=== PATIENT | female | born 1990 | race Hispanic/Latino ===

== ENCOUNTER 2022-02-10 22:11 | Outpatient (CLI) | payer OTHER ==
[2022-02-10] MEDS ORDERED: LACTATED RINGERS 1,000 ML IV ONE (22:27)
[2022-02-10 22:57] VITALS: BP 104/57
[2022-02-10] MEDS ORDERED: TERBUTALINE 1 MG/1 ML INJ SUB-Q SCH (23:00)
[2022-02-10 23:45] LABS: Bilirubin,Urine Negative (Negative); Color,Urine Colorless (Yellow)
[2022-02-10 23:46] LABS: Blood,Urine Trace (Negative); Protein,Urine <15 mg/dL mg/dL (Negative); Urobilinogen,Urine 0.2 mg/dL (<2.0)
[2022-02-10 23:47] LABS: Bacteria,Urine 3+ /HPF (Negative)
[2022-02-10 23:49] LABS: WBC,Urine < 1.0 /HPF (0.0-6.0)
== END 2022-02-11 00:09 | disposition home or self-care (01) ==
LOC: TRG 22:11 → APU 22:13 → TRG 02-11 00:09
PROVIDERS: ATTEND Obstetrics & Gynecology
DX: O26.893 Other specified pregnancy related conditions, third trimester (principal); R25.2 Cramp and spasm; Z3A.33 33 weeks gestation of pregnancy
CPT/HCPCS: 81001

== ENCOUNTER 2022-03-13 19:12 | Outpatient (CLI) | payer OTHER ==
[2022-03-13] MEDS ORDERED: LACTATED RINGERS 1,000 ML IV ONE (20:16)
[2022-03-13 20:27] LABS: Color,Urine Straw (Yellow)
[2022-03-13 20:28] LABS: Bacteria,Urine 2+ /HPF (Negative); Mucus,Urine FEW /HPF
[2022-03-13] MEDS ORDERED: TERBUTALINE 1 MG/1 ML INJ SUB-Q ONE (22:11)
--- NOTE | 2022-03-13 23:01 | Event Note ---
Date: 03/13/22 Pt presented to triage with reports or contractions for several weeks, she is now 37+3 weeks. She reports hx of quick labors - states she arrived to hospital 9cms with last 2 labors. hx of 2 prev c/s after 4th degree laceration. No change in SVE after 2.5hrs in triage, rechecked by same examiner. Pt states she is "more that I have ever been" and her s/o states that he does not feel comfortable taking pt home. Pt states she is unsure if she feels she is in labor. Will allow patient to obs overnight, if active labor starts, will admit for repeat c/s.
[2022-03-13] MEDS ORDERED: ZOLPIDEM 5 MG TAB PO ONE (23:06)
[2022-03-13] MEDS ORDERED: LACTATED RINGERS 1,000 ML IV SCH (23:15)
[2022-03-14 00:34] LABS: Hematocrit 32.2 % (30.3-42.9); Hemoglobin 10.6 gm/dl (10.1-14.3); Mean Corpuscular HGB Conc 33 % (30-34); Mean Corpuscular Volume 84 fl (79-97); Platelet Count 153 K/mm3 (140-440); Red Blood Count 3.83 M/mm3 (3.65-5.03); Red Cell Distribution Width 14.4 % (13.2-15.2)
[2022-03-14 07:44] VITALS: BP 118/76
== END 2022-03-14 10:00 | disposition home or self-care (01) ==
LOC: TRG 19:12 → APU 19:14 → LD 03-14 00:15 → TRG 03-14 10:00
PROVIDERS: ATTEND Obstetrics & Gynecology
DX: O62.9 Abnormality of forces of labor, unspecified (principal); Z3A.37 37 weeks gestation of pregnancy
CPT/HCPCS: 36415; 81001; 85027; 86850; 86900; 86901; 96360; J7120

== ENCOUNTER 2022-03-24 07:35 | Inpatient (IN) | payer OTHER ==
[2022-03-24] MEDS ORDERED: FAMOTIDINE 20 MG/2 ML INJ IV ONE (08:09)
[2022-03-24] MEDS ORDERED: BICITRA ORAL LIQD 30ML PO ONE (08:09)
[2022-03-24] MEDS ORDERED: METOCLOPRAMIDE 10 MG/2 ML INJ IV ONE (08:09)
--- NOTE | 2022-03-24 08:39 | Anesthesia Consultation ---
Anesthesia Consult and Med Hx Date of service: 03/24/22 - Airway Anesthetic Teeth Evaluation: Good ROM Head & Neck: Adequate Mental/Hyoid Distance: Adequate Mallampati Class: Class II Intubation Access Assessment: Good - Pulmonary Exam CTA: Yes - Cardiac Exam Cardiac Exam: RRR - Pre-Operative Health Status ASA Pre-Surgery Classification: ASA2, Emergency Proposed Anesthetic Plan: Spinal - Pulmonary Hx Asthma: No COPD: No Hx Pneumonia: No - Cardiovascular System Hx Hypertension: No - Central Nervous System Hx Seizures: No Hx Psychiatric Problems: No - Endocrine Hx Renal Disease: No Hx End Stage Renal Disease: No Hx Hypothyroidism: No Hx Hyperthyroidism: No - Hematic Hx Anemia: No Hx Sickle Cell Disease: No - Other Systems Hx Alcohol Use: No
--- NOTE | 2022-03-24 08:41 | Anesthesia Day of Surgery ---
Anesthesia Day of Surgery - Day of Surgery Patient Examined: Yes Patient H&P Reviewed: Yes Patient is NPO: Yes
[2022-03-24] MEDS ORDERED: OXYTOCIN DRIP 30 UNITS/500 ML BAG IV SCH ×3 (09:00→13:00)
[2022-03-24] MEDS ORDERED: PROMETHAZINE 25 MG RECT SUPP PR PRN (09:00)
[2022-03-24 09:15] LABS: Basophils % (Auto) 0.4 % (0.0-1.8); Eosinophils % (Auto) 0.6 % (0.0-4.3); Hematocrit 34.5 % (30.3-42.9); Hemoglobin 11.6 gm/dl (10.1-14.3); Lymphocytes # (Auto) 1.3 K/mm3 (1.2-5.4); Mean Corpuscular HGB Conc 34 % (30-34); Mean Corpuscular Volume 82 fl (79-97); Monocytes # (Auto) 0.4 K/mm3 (0.0-0.8); Monocytes % (Auto) 6.4 % (0.0-7.3); Platelet Count 159 K/mm3 (140-440); Red Blood Count 4.22 M/mm3 (3.65-5.03); Red Cell Distribution Width 14.9 % (13.2-15.2)
[2022-03-24] MEDS ORDERED: SODIUM CHLORIDE 0.9% IRR 1,500 ML BOTTLE IR ONE (09:28)
[2022-03-24] MEDS ORDERED: WATER FOR IRRIG STERILE 1,500 ML BOTTLE IR ONE (09:28)
[2022-03-24] MEDS ORDERED: LACTATED RINGERS 1,000 ML IV SCH (10:00)
[2022-03-24] MEDS ORDERED: NALOXONE 0.4 MG/1 ML INJ IV PRN ×2 (10:00→13:00)
[2022-03-24] MEDS ORDERED: NalbUPHINE 10 MG/1 ML INJ IV PRN (10:00)
[2022-03-24] MEDS ORDERED: fentaNYL-BUPIV 2 MCG/ML-0.125% 200 MCG/100 ML BAG EPIDURAL SCH (10:00)
[2022-03-24] MEDS ORDERED: PROMETHAZINE 25 MG TAB PO PRN (10:00)
[2022-03-24] MEDS ORDERED: ACETAMINOPHEN 325 MG TAB PO PRN (10:00)
[2022-03-24] MEDS ORDERED: ePHEDrine SULFATE 50 MG/1 ML INJ IV PRN (10:00)
[2022-03-24] MEDS ORDERED: ONDANSETRON 4 MG/2 ML INJ IV PRN ×2 (10:00→13:00)
--- NOTE | 2022-03-24 10:32 | History and Physical Report ---
History of Present Illness Date of examination: 03/24/22 Date of admission: 03/24/22 09:09 History of present illness: Patient presented to labor and delivery with complaints of regular contractions and her initial examination revealed that she had a cervix was dilated to 5 cm. Patient care complicated by history of 2 previous section the patient is scheduled for soon repeat section with bilateral salpingectomy on tomorrow. Therefore patient underwent section today. EDC Confirmation: 03/31/2022 Past History : 6 Term Births: 1 Premature Births: 2 Living Children: 3 Para: 3 Prev : 2 Aborta: 2 Spont. Ab: 2 # 1 Delivery date: 2014 Weeks Gestation: 36 Delivery type: Anesthesia type: epidural Delivery location: [place] [facility] Sex: Male weight: 6-2 Comments: 4th degree laceration Pre E induced # 2 Delivery date: 2016 Weeks Gestation: 35.0 Delivery type: Anesthesia type: epidural Delivery location: [facility] Inf[facility] Sex: Male weight: 5-13 Comments: pre term labor # 3 Delivery date: 2018 Delivery type: SAB # 4 Delivery date: 2019 Weeks Gestation: 37 Delivery type: Anesthesia type: epidural Delivery location: [facility] 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 of genital herpes: no Varicella/Chicken Pox Status: Previous Disease Genetic History Congenital Heart Defect: Mom: no Dad: no Delmer Disease: Mom: no Dad: no Thalassemia Mom: no Dad: no Neural Tube Defect Mom: no Dad: no Down's Syndrome Mom: no Dad: no Alexsander-Sachs Mom: no Dad: no Sickle Cell Disease/Trait Mom: no Dad: no Hemophilia Mom: no Dad: no Muscular Dystrophy Mom: no Dad: no Cystic Fibrosis Mom: no Dad: no Harlan Chorea Mom: no Dad: no Mental Retardation Mom: no Dad: no Fragile X Mom: no Dad: no Other Genetic/Chromosomal Disorder Mom: no Dad: no Child w/other defect Mom: no Dad: no Enviromental Exposures Xray Exposure: no Medication, drug, or alcohol use since LMP: no Chemical/Other Exposure: no Exposure to Cat Liter: no Hx of Parvovirus (Fifth Disease): no Occupational Exposure to Children: none Active Medications: Diclegis 10-10 mg tablet,delayed release (DR/EC) (doxylamine-pyridoxine (vit b6)) 2 tablet by mouth once a day promethazine 12.5 mg tablet (promethazine) 1 tablet by mouth every six hours Current Allergies: * PENICILLIN (Critical) Past History Past Medical History: no pertinent history Past Surgical History: section 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 (SEE HPI) Family/Genetic History: other (SEE HPI) Social history: full code, other (SEE HPI) - Obstetrical History Expected Date of Delivery: 03/31/22 Actual Gestation: 39 Week(s) 0 Day(s) : 6 Para: 3 Hx # Term Pregnancies: 1 Number of Pregnancies: 2 Spontaneous Abortions: 2 Induced : 0 Number of Living Children: 3 Medications and Allergies Allergies Allergy/AdvReac Type Severity Reaction Status Date / Time Penicillins Allergy Hives Verified 03/17/22 12:35 Home Medications Medication Instructions Recorded Confirmed Last Taken Type Ferrous Sulfate [Feosol 325 MG tab] 325 mg PO BID #60 tablet 03/24/22 Unknown Rx Ibuprofen [Motrin] 800 mg PO TID PRN #30 tablet 03/24/22 Unknown Rx Lidocain2.5%/Prilocai2.5% [Emla] 5 gm TP ONCE #1 tube 03/24/22 Unknown Rx oxyCODONE /ACETAMINOPHEN [Percocet 1 tab PO Q6HR PRN #20 tablet 03/24/22 Unknown Rx 5/325 mg] Active Meds: Active Medications Acetaminophen (Acetaminophen 325 Mg Tab) 650 mg PO Q4H PRN PRN Reason: Pain, Mild (1-3) Ephedrine Sulfate (Ephedrine Sulfate 50 Mg/1 Ml Inj) 10 mg IV Q2M PRN PRN Reason: Hypotension Lactated Ringer's (Lactated Ringers) 1,000 mls @ 2,250 mls/hr IV PREOP VESNA Stop: 03/25/22 10:27 Oxytocin/Sodium Chloride (Pitocin/Ns 30 Unit/500ml) 30 units in 500 mls @ 0 mls/hr IV TITR VESNA; Protocol Clindamycin HCl (Cleocin 900 Mg/50 Ml) 900 mg in 50 mls @ 100 mls/hr IV PREOP NR; Protocol Stop: 03/24/22 23:59 Fentanyl/Bupivacaine/Sodium Chlor (Fentanyl-Bupiv 2 Mcg/Ml-0.125%) 200 mcg in 100 mls @ 8 mls/hr EPIDURAL TITRATE VESNA; Protocol Oxytocin/Sodium Chloride (Pitocin/Ns 30 Unit/500ml) 30 units in 500 mls @ 40 mls/hr IV TITR VESNA Nalbuphine HCl (Nalbuphine 10 Mg/1 Ml Inj) 10 mg IV Q2H PRN PRN Reason: Pain, Moderate (4-6) Naloxone HCl (Naloxone 0.4 Mg/1 Ml Inj) 0.2 mg IV Q2MIN PRN PRN Reason: Res Rate </= 8 or 02 SAT < 92% Ondansetron HCl (Ondansetron 4 Mg/2 Ml Inj) 4 mg IV Q8H PRN PRN Reason: Nausea And Vomiting Promethazine HCl (Promethazine 25 Mg Tab) 25 mg PO Q6H PRN PRN Reason: Nausea And Vomiting Promethazine HCl (Promethazine 25 Mg Rect Supp) 25 mg MA Q6H PRN PRN Reason: Nausea And Vomiting Sodium Chloride (Sodium Chloride 0.9% 10 Ml Flush Syringe) 10 ml IV PRN PRN PRN Reason: flush - Vital Signs Vital signs: Vital Signs Pulse Pulse Ox 92 H 92 03/24/22 07:47 03/24/22 07:47 Temp Pulse Resp BP Pulse Ox 97.7 F 93 H 18 125/81 94 03/24/22 07:50 03/24/22 08:07 03/24/22 07:50 03/24/22 07:48 03/24/22 08:07 - Physical Exam Breasts: Positive: deferred Cardiovascular: Regular rate Lungs: Positive: Normal air movement Abdomen: Positive: normal appearance Uterus: Positive: enlarged Extremities: Positive: edema - Obstetrical FHR: category 1 Uterine Contraction Monitor Mode: External Results Result Diagrams: 03/24/22 13:57 Abnormal lab results 03/24/22 Range/Units 08:57 MCH 27 L (28-32) pg Seg Neutrophils % 72.6 H (40.0-70.0) % All other labs normal. Assessment and Plan - Patient Problems (1) Active labor at term Current Visit: Yes Status: Acute (2) Previous delivery affecting , antepartum Current Visit: Yes Status: Acute Plan to address problem: Discuss the risks of the surgery including infection, bleeding possibly heavy enough to require a blood transfusion, possible damage to bowel, bladder or ureter. Her questions were answered. Patient understands and desires to proceed The patient was instructed/informed the following: Patient desires sterilization. Patient declined temporary contraceptives. Discuss the permanency of sterilization. High risk of regret and 0.5 to 1% risk of failure. Discussed possible ovarian cancer prevention benefit of salpingectomy with its increased risks of blood loss vs partial salpingectomy. Questions answered Patient understands and desires to proceed with salpingectomy Patient desires to have at time of section. (3) Encounter for sterilization Current Visit: Yes Status: Acute Plan to address problem: Patient desires sterilization. Patient declined temporary contraceptives. Discuss the permanency of sterilization. High risk of regret and 0.5 to 1% risk of failure. Discussed possible ovarian cancer prevention benefit of salpingectomy with its increased risks of blood loss vs partial salpingectomy. Questions answered Patient understands and desires to proceed with salpingectomy Patient desires to have at time of section.
--- NOTE | 2022-03-24 10:33 | Operative Report ---
Operative Report Operative Report: Date of procedure: March 24, 2022 Pre-operative diagnosis: Intrauterine at 39 weeks with previous sections x2 and active labor and desires permanent sterilization Post-operative diagnosis: Same Procedure name(s): Repeat low-transverse section with bilateral salpingectomy Surgeon: Joe Maria MD Lean Manager: Violet Martin CST Anesthesia: Spinal EBL: Quantitative blood loss 862 cc Complications: None Findings: Patient with some anterior scar and of the bladder to the uterus with normal uterus tubes and ovaries. Male infant weight 9 pounds 1 ounce Apgars 9 at 1 minute and 9 at 5-minute. Specimen(s): Right and left fallopian tubes Procedure: The patient was brought to the operating room. A spinal was placed without any complications. She was then placed in left lateral tilt. Prepped and draped in the usual sterile manner. After testing for adequate anesthesia level, a Pfannenstiel incision was made through her previous scar. This incision was taken down to the fascia. The fascia was then nicked in the midline. This incision was extended out laterally with Gaffney scissors. The fascia was then sharply and bluntly from the underlying rectus muscles. The rectus muscles were bluntly and sharply . The peritoneum was then entered with the network systems operator's fingers. This incision was spread vertically with care not to damage the bladder below. The Sriram self-retaining tractor was then placed without any difficulty. The bladder flap was then formed sharply and bluntly with Metzenbaum scissors. A transverse incision was made in lower uterine segment. This incision was extended laterally with the operators fingers. The amniotic sac was then entered bluntly with the network systems operator's fingers. The was delivered from the vertex position. Bulb suction on the mother's abdomen. Cord was double clamped and cut. The was then passed to the nursery personnel who were in attendance. The above scores were given by the nursery personnel. The placenta was then bluntly removed. The uterus was then externalized and wiped clean the remaining products. The uterine incision was closed in layers. The first incision was closed in a locking manner using 0 Vicryl. This was followed by imbricating stitch also with 0 Vicryl. Attention was then switched to the patient's fallopian tubes. Each fallopian tube was identified by its fimbriated end. Starting on the patient's right side. A portion of each tube was grabbed with the [place] clamp approximately 2-3 cm from the cornua. A second Ivory grasp the distal in the fallopian tube the tube was raised the medially and was transferred dissected with the Bovie. The mesosalpinx was cauterized and cut immediately under the fallopian tube until the distal end was reached and the tube was detached. The remaining mesosalpinx and ovary were inspected and found to be hemostatic. Attention was then switched to the patient's left fallopian tube where the same seizure was performed with good hemostasis. Attention was then switched back to the uterine closure. This closure was hemostatic after additional [id number] sutures. The bladder flap was copiously irrigated and found to be hemostatic. The pelvis was copiously irrigated and found to be hemostatic. The uterus was then placed back to the patient's abdomen. Surgicel was placed along the uterine incision the retractors were removed. The rectus muscles were inspected and found to be hemostatic. The fascia was then closed in a running manner using 0 Vicryl. This incision was hemostatic irrigation Bovie. The skin was reapproximated with 4-0 Vicryl subcuticularly. The patient tolerated procedure well. Her urine was clear. The infant was admitted to the well baby nursery. The patient was accompanied to recovery room in good condition. Instrument count correct x3.
--- NOTE | 2022-03-24 12:21 | Progress Note ---
Spinal Anesthesia Block - Spinal Anesthesia Block Start Time: 09:05 Stop Time: 09:12 Performed by:: WINTER YOUNG Procedure: Spinal anesthesia block is being performed for [repeat c/s]. H&P, labs have been reviewed. Patient's questions and concerns have been answered. Informed consent has been performed. Timeout has was performed. Patient in sitting position on side of bed. Sterile prep and drape was performed. 3 mL 1% lidocai ne skin wheal at L [3]-L [4]. Needle introducer advanced. 24-gauge spinal needle advanced, [+] CSF [-] blood. [] Spinal dose was given. All needles removed. Patient tolerated procedure well.
--- NOTE | 2022-03-24 12:22 | Progress Note ---
Regional Anesthesia Block - Regional Anesthesia Block Start Time: 11:15 Stop Time: :25 Performed By:: WINTER YOUNG Procedure: Patient consented for TAP block for post surgical pain management. Patient identified, monitors placed, and time out performed. Mid axillary TAP identified bilaterally via ultrasound. Skin prepped bilaterally with [chlorhexidine] and [20g stimuplex] needle advanced to the TAP. 30ml [Marcaine 0.25% with 25mcg Precedex and Decadron 5mg] injected under ultrasound guidance on the [left] side. 30ml [Marcaine 0.25% with 25mcg Precedex and Decadron 5mg] injected under ultrasound guidance on the [right] side. Negative aspiration every 5mL, Patient tolerated the procedure well. No apparent complications seen.
[2022-03-24] MEDS ORDERED: LANOLIN/ZINC/DIMETHICONE (LANSINOH) 7 GM TP PRN (13:00)
[2022-03-24] MEDS ORDERED: WITCH HAZEL/ GLYCERIN PAD TP PRN (13:00)
[2022-03-24] MEDS: MORPHINE 4 MG/1 ML INJ IV PRN ×3 (13:30→22:38)
[2022-03-24] MEDS ORDERED: IBUPROFEN 600 MG TAB PO PRN (13:30)
[2022-03-24] MEDS ORDERED: SIMETHICONE 80 MG CHEW TAB PO PRN (13:30)
[2022-03-24 14:48] LABS: Hematocrit 25.9 % (30.3-42.9); Hemoglobin 8.4 gm/dl (10.1-14.3)
[2022-03-24] MEDS: KETOROLAC 30 MG/1 ML INJ IV PRN (16:09)
[2022-03-24] MEDS: CLINDAMYCIN 600 MG/50 mL 600 MG/50 ML BAG IV SCH (18:19)
[2022-03-24 20:22] LABS: Hemoglobin 9.2 gm/dl (10.1-14.3)
[2022-03-24] MEDS: D5W/LACTATED RINGERS 1,000 ML IV SCH (20:55)
[2022-03-24] MEDS ORDERED: MAGNESIUM HYDROXIDE (MOM) ORAL LIQD UDC PO PRN (22:00)
[2022-03-24 22:54] LABS: Hematocrit 27.8 % (30.3-42.9); Hemoglobin 8.8 gm/dl (10.1-14.3)
[2022-03-25] MEDS: KETOROLAC 30 MG/1 ML INJ IV PRN ×3 (01:47→20:43)
[2022-03-25] MEDS: CLINDAMYCIN 600 MG/50 mL 600 MG/50 ML BAG IV SCH (01:55)
[2022-03-25] MEDS: D5W/LACTATED RINGERS 1,000 ML IV SCH (04:33)
[2022-03-25] MEDS: MORPHINE 4 MG/1 ML INJ IV PRN (04:34)
[2022-03-25] MEDS: oxyCODONE /ACETAMINOPHEN 5-325MG TAB PO PRN ×2 (08:55→15:36)
[2022-03-25] MEDS: PRENATAL VIT27-FE FUMARATE-FOLIC ACID VIT TAB PO SCH (10:52)
[2022-03-25] MEDS: FERROUS SULFATE 325 MG TAB PO SCH (10:52)
[2022-03-25] MEDS ORDERED: TETANUS,DIPH,PERTUSS(ACELL) VACCINE 0.5 ML SYRINGE IM ONE (11:00)
[2022-03-25] MEDS ORDERED: MEASLES, MUMPS & RUBELLA 12,500 UNIT/0.5 ML VACCINE SUB-Q ONE (11:00)
--- NOTE | 2022-03-25 14:53 | Post Anesthesia Evaluation ---
- Post Anesthesia Evaluation Patient Participated: Yes Airway Patent: Yes Stable Respiratory Function: Yes Nausea/Vomiting: No Temp > 96.8F: Yes Pain Manageable: Yes Adequeate Hydration: Yes Anesthesia Complications: No Block Receding Appropriately: Yes Patient on Ventilator: No
--- NOTE | 2022-03-25 20:54 | Progress Note ---
Assessment and Plan A: 31 y.o. s/p rpt . POD #1 - Patient Problems (1) delivery delivered Current Visit: Yes Status: Acute Plan to address problem: Continue with care. Advance diet as tolerated. Encourage IS use. Encourage ambulation. Pain medication adjusted. Patient worried about her blood pressures - Blood pressures have been WNL. - Will continue to monitor. Anticipate discharge home on 03/26. Subjective - Subjective Date of service: 03/25/22 Principal diagnosis: s/p rpt Interval history: Pt doing well. She states that her pain is "somewhat controlled." We discussed changing her pain medication regime. She expressed understanding and agrees. Pt has a history of Pre-eclampsia and is worried about her blood pressures. She denies LUCAS, blurred vision, spots before her eyes, chest pain, shortness of breath, and upper abdominal pain. BC: Vasectomy. Pt would like infant circu mcised. Patient reports: appetite normal, voiding normally, ambulating normally, other (Pt with some pain. States that she needs pain medication as prescribed. ) [place]: doing well Objective - Vital Signs Latest vital signs: Vital Signs Temp Pulse Resp BP BP Pulse Ox Pulse Ox 03/25/22 20:43 18 03/25/22 16:50 97.7 F 70 18 139/83 100 03/25/22 08:34 97.6 F 85 18 132/80 100 03/25/22 08:00 100 03/25/22 05:00 98.4 F 86 18 116/73 03/25/22 00:30 98.4 F 88 16 121/73 03/24/22 23:11 98 Intake and Output 03/25/22 03/25/22 03/25/22 06:59 14:59 22:59 Intake Total 1204.167 Output Total 2600 900 Balance -1395.833 -900 Intake: IV 1004.167 CLEOCIN 600 MG/50 mL 600 50 mg In 50 ml @ 100 mls/hr IV Q8H VESNA Rx#:[id number] D5lr 1,000 ml @ 125 mls/ 954.167 hr IV DIRECT VESNA Rx#: [id number] Intake, Free Water 200 Output: Urine 2600 900 Indwelling Catheter 2100 Void 500 900 Other: Total, Output Amount 500 900 # Voids Void 1 1 2 - Exam Narrative Exam: Blood pressure ranges have been 99-139/59-88. Cardiovascular: Present: Regular rate Lungs: Present: Normal air movement Abdomen: Present: normal appearance, soft Vulva: both: normal Uterus: Present: normal Extremities: Present: normal Incision: Present: normal, dry, intact, other (Open to air. No s/sx of infection and no drainage noted. ) - Labs Labs: Abnormal lab results 03/24/22 Range/Units 22:18 Hgb 8.8 L (10.1-14.3) gm/dl Hct 27.8 L (30.3-42.9) %
[2022-03-26] MEDS: oxyCODONE /ACETAMINOPHEN 5-325MG TAB PO PRN ×2 (01:11→08:15)
--- NOTE | 2022-03-26 08:32 | Discharge Summary ---
Providers - Providers Date of Admission: 03/24/22 09:09 Date of discharge: 03/26/22 Attending physician: AMBER SILVA Primary care physician: AMBER SILVA Hospitalization Condition: Good Pertinent studies: post op H&H 8.8/27.8 Procedures: POD #2, pt stable, denies LUCAS, vision changes, epigastric pain. Incision clean and dry, well-approximated with surgical glue. VSSAF. Bleeding scant. Pt desires discharge today. Baby doing well, . Hospital course: unremarkable Disposition: 01 HOME / SELF CARE / HOMELESS Final Discharge Diagnosis (Prints w/discharge instructions): s/p repeat section and BTL Time spent for discharge: 20 - Discharge Diagnoses (1) delivery delivered Status: Acute (2) Encounter for sterilization Status: Acute Core Measure Documentation - Palliative Care Palliative Care/ Comfort Measures: Not Applicable - Core Measures Any of the following diagnoses?: none Exam - Constitutional Vitals: Temp Pulse Resp BP Pulse Ox 97.7 F 68 18 115/67 100 03/26/22 04:40 03/26/22 04:40 03/26/22 04:40 03/26/22 04:40 03/26/22 04:40 General appearance: Present: no acute distress, well-nourished - EENT Eyes: Present: EOM intact ENT: hearing intact, clear oral mucosa - Neck Neck: Present: supple, normal ROM - Respiratory Respiratory effort: normal - Cardiovascular Rhythm: regular - Extremities Extremities: No edema, Full ROM Peripheral Pulses: within normal limits - Abdominal General gastrointestinal: Present: soft, non-tender, normal bowel sounds Female genitourinary: Present: normal - Integumentary Integumentary: Present: clear, warm, dry - Musculoskeletal Musculoskeletal: strength equal bilaterally - Psychiatric Psychiatric: appropriate mood/affect - Neurologic Neurologic: CNII-XII intact Plan Activity: advance as tolerated Diet: regular Wound: open to air, keep clean and dry, per your surgeon's advice Follow up with: AMBER SILVA MD [Primary Care Provider] - 7 Days (Congratulations! Please call [facility] at [phone] to schedule your appointment and your son's circumcision in one week. Bring emla cream to office and wait for instructions, please call with any questions!) Prescriptions: Lidocain2.5%/Prilocai2.5% [Emla] 5 gm TP ONCE #1 tube Ferrous Sulfate [Feosol 325 MG tab] 325 mg PO BID #60 tablet Ibuprofen [Motrin] 800 mg PO TID PRN #30 tablet PRN Reason: Pain oxyCODONE /ACETAMINOPHEN [Percocet 5/325 mg] 1 tab PO Q6HR PRN #20 tablet PRN Reason: Pain
[2022-03-26 08:47] VITALS: BP 122/83
[2022-03-26] MEDS: PRENATAL VIT27-FE FUMARATE-FOLIC ACID VIT TAB PO SCH (10:05)
[2022-03-26] MEDS: FERROUS SULFATE 325 MG TAB PO SCH (10:05)
== END 2022-03-26 10:57 | disposition home or self-care (01) | DRG 784 ==
LOC: TRG 07:35 → APU 07:38 → TRG 09:13 → APU 09:33 → OB 12:22
PROVIDERS: ADMIT Obstetrics & Gynecology; ATTEND Obstetrics & Gynecology
PROC: 10D00Z1 Extraction of Products of Conception, Low, Open Approach (ICD-10-PCS; principal; 2022-03-24)
PROC: 0UB70ZZ Excision of Bilateral Fallopian Tubes, Open Approach (ICD-10-PCS; 2022-03-24)
PROC: 3E0T3BZ Introduction of Anesthetic Agent into Peripheral Nerves and Plexi, Percutaneous Approach (ICD-10-PCS; 2022-03-24)
PROC: 3E0234Z Introduction of Serum, Toxoid and Vaccine into Muscle, Percutaneous Approach (ICD-10-PCS; 2022-03-25)
DX: O34.211 Maternal care for low transverse scar from previous cesarean delivery (principal); R71.0 Precipitous drop in hematocrit; Z20.822 Contact with and (suspected) exposure to COVID-19; Z37.0 Single live birth; Z23 Encounter for immunization; Z88.0 Allergy status to penicillin; Z3A.39 39 weeks gestation of pregnancy; Z30.2 Encounter for sterilization
CPT/HCPCS: 36415; 85014; 85018; 85025; 86850; 86900; 86901; G0378; J3490; J7060; J7502; J1885; J2270; J2765; J7120; J7121; U0003

== ENCOUNTER 2022-04-02 17:50 | Emergency (ER) | payer OTHER ==
--- NOTE | 2022-04-02 23:03 | Emergency Department Report ---
ED General Adult HPI - General Chief complaint: High BP Stated complaint: HIGH BLOOD PRESSURE Time Seen by Provider: 04/02/22 22:52 Source: patient Mode of arrival: Ambulatory Limitations: No Limitations - History of Present Illness Initial comments: THIS IS A PLEASANT 31 YEAR OLD FEMALE WHO STATES SHE HAS HISTORY OF PREECLAMPSIA AFTER HER 1ST AND 3RD DELIVERY CAME IN TODAY WITH CONCERN OF ELEVATED BLOOD PRESSURE. THIS IS PATIENT'S 4TH AND 3RD ; LAST TUESDAY (NOT THIS PAST) WITH DR. SILVA HERE AT [facility]. PATIENT STATES HER BLOOD PRESSURE HAS BEEN ELEVATED SINCE PAST TUESDAY AND WAS STARTED ON LABETOLOL 200MG BID AND LAST DOSE WAS TODAY AT 7:30PM. PATIENT STATES SHE HAD URINALYSIS DONE AND WAS NEGATIVE FOR PROTEIN. PATIENT STATES DR. TRUDY MOSQUEDA INSTRUCTED TO COME TO THE ER DUE TO CONTINUE ELEVATED BLOOD PRESSURE DESPITE STARTED ON LABETOLOL. PATIENT STATES WHILE IN THE WAITING AREA SINCE 5PM, SHE STARTED FEELING LIGHTH EADED. STATES HAS MILD CHEST PRESSURE/TIGHTNESS LIKE SENSATION SINCE 4PM WHILE AT HOME THAT'S LOCALIZED. AT THE TIME OF MY EVALUATION PATIENT DENIES FEVER, CHILL, NIGHT SWEATS, DIZZINESS, HEADACHE, EAR PAIN, SORE THROAT, PALPITATION, DYSPNEA, COUGH, ABDOMINAL DISCOMFORT, N/V/D/C, DYSURIA, MYALGIA, ARTHRALGIA, NEW RASH/LESION, AND HEAT OR COLD INTOLERANCE. - Related Data Previous Rx's Medication Instructions Recorded Last Taken Type Ferrous Sulfate [Feosol 325 MG tab] 325 mg PO BID #60 tablet 03/24/22 Unknown Rx Ibuprofen [Motrin] 800 mg PO TID PRN #30 tablet 03/24/22 Unknown Rx Lidocain2.5%/Prilocai2.5% [Emla] 5 gm TP ONCE #1 tube 03/24/22 Unknown Rx oxyCODONE /ACETAMINOPHEN [Percocet 1 tab PO Q6HR PRN #20 tablet 03/24/22 Unknown Rx 5/325 mg] Allergies Allergy/AdvReac Type Severity Reaction Status Date / Time Penicillins Allergy Hives Verified 03/17/22 12:35 ED Review of Systems ROS: Stated complaint: HIGH BLOOD PRESSURE Other details as noted in HPI Comment: All other systems reviewed and negative ED Past Medical Hx - Past Medical History Hx Hypertension: Yes ( HTN) Hx Congestive Heart Failure: No Hx Diabetes: No Hx Deep Vein Thrombosis: No Hx Renal Disease: No Hx Sickle Cell Disease: No Hx Seizures: No Hx Asthma: No Hx COPD: No Hx HIV: No Additional medical history: DELIVERY 03/24/2022. POST HYPERTENSION - Surgical History Past Surgical History?: No - Social History Smoking Status: Never Smoker - Medications Home Medications: Home Medications Medication Instructions Recorded Confirmed Last Taken Type Ferrous Sulfate [Feosol 325 MG tab] 325 mg PO BID #60 tablet 03/24/22 Unknown Rx Ibuprofen [Motrin] 800 mg PO TID PRN #30 tablet 03/24/22 Unknown Rx Lidocain2.5%/Prilocai2.5% [Emla] 5 gm TP ONCE #1 tube 03/24/22 Unknown Rx oxyCODONE /ACETAMINOPHEN [Percocet 1 tab PO Q6HR PRN #20 tablet 03/24/22 Unknown Rx 5/325 mg] ED Physical Exam - General Limitations: No Limitations General appearance: alert, in no apparent distress - Head Head exam: Present: atraumatic, normocephalic, normal inspection - Eye Eye exam: Present: normal appearance, PERRL, EOMI Pupils: Present: normal accommodation - ENT ENT exam: Present: mucous membranes moist - Neck Neck exam: Present: normal inspection, full ROM - Extremities Exam Extremities exam: Present: normal inspection, full ROM, other (I DON'T APPRECIATE ANY EDEMA VISUALLY.). Absent: pedal edema - Back Exam Back exam: Present: full ROM - Neurological Exam Neurological exam: Present: alert, oriented X3, CN II-XII intact, normal gait - Psychiatric Psychiatric exam: Present: normal affect, normal mood - Skin Skin exam: Present: normal color ED Course Vital Signs 04/02/22 04/03/22 17:51 01:19 Temperature 100.0 F H 98.5 F Pulse Rate 63 57 L Respiratory 18 16 Rate Blood Pressure 165/86 158/68 [Left] O2 Sat by Pulse 100 98 Oximetry - Reevaluation(s) Reevaluation #1: 04/02/22 23:55 STILL PENDING URINALYSIS TO SEE IF THERE ARE ANY PROTEIN AND ALSO OTHER LABS SUCH CREATININE, PLATELETS, LDH. 04/02/22 23:57 04/03/22 00:41 All the labs are back except LDH and UA; calling labs to see if they have the urine. Creatinine and platelet normal. 04/03/22 01:38 UA WITH NO PROTEIN; THEREFORE DOUBT PRE-ECLAMPSIA. STILL PENDING LDH. 04/03/22 02:24 I HAVE CALLED THE CHEMISTRY AND THEY ARE STILL RUNNING THE LDH. 04/03/22 02:51 LDH ELEVATED BUT THERE ARE NO SIGNS OF HELLPS (CBC W/O THROMBOCYTOPENIA AND NO ELEVATED AST/ALT). PATIENT NOT IN PRE-ECLAMPSIA ED Medical Decision Making - Lab Data Result diagrams: 04/02/22 23:24 04/02/22 23:24 Critical care attestation.: If time is entered above; I have spent that time in minutes in the direct care of this critically ill patient, excluding procedure time. ED Disposition Clinical Impression: Elevated blood pressure reading Disposition: 01 HOME / SELF CARE / HOMELESS Is pt being admited?: No Does the pt Need Aspirin: No Condition: Stable Instructions: Hypertension, Adult, [id number] Additional Instructions: YOUR WORK UP IN THE EMERGENCY ROOM DID NOT REVEAL THAT YOU ARE IN PRE-ECLAMPSIA; CONTINUE TO TAKE YOUR BLOOD PRESSURE MEDICATION AND MAKE A FOLLOW UP APPOINTMENT WITH YOUR PRIMARY CARE PROVIDER AND OBGYN PHYSICIAN TO BE SEEN WITHIN 3 DAYS FOR FURTHER OUTPATIENT EVALUATION AND MANAGEMENT OF YOUR BLOOD PRESSURE. Referrals: WALLY MIRANDA MD [Primary Care Provider] - 3-5 Days Forms: Work/School Release Form(ED) Time of Disposition: 02:56
[2022-04-03 00:13] LABS: Hematocrit 31.4 % (30.3-42.9); Mean Corpuscular HGB Conc 32 % (30-34); Mean Corpuscular Volume 84 fl (79-97); Platelet Count 210 K/mm3 (140-440); Red Blood Count 3.72 M/mm3 (3.65-5.03); Red Cell Distribution Width 16.5 % (13.2-15.2)
[2022-04-03 00:21] LABS: INR 0.91 (0.87-1.13); Partial Thromboplastin Time 28.1 Sec. (24.2-36.6)
[2022-04-03 00:23] LABS: Alanine Aminotransferase 20 units/L (7-56); Albumin 4.2 g/dL (3.9-5); BUN/Creatinine Ratio 13; Blood Urea Nitrogen 10 mg/dL (7-17); Calcium 9.1 mg/dL (8.4-10.2); Hemolysis Index 2
[2022-04-03 00:30] LABS: Creatine Kinase MB 1.7 ng/mL (0.0-4.0)
--- NOTE | 2022-04-03 00:30 | XRay Report ---
CHEST 1 VIEW INDICATION / CLINICAL INFORMATION: CHEST PAIN POST PARDUM X9DAYS;. COMPARISON: None available. FINDINGS: SUPPORT DEVICES: None. HEART / MEDIASTINUM: No significant abnormality. LUNGS / PLEURA: No significant pulmonary or pleural abnormality. No pneumothorax. ADDITIONAL FINDINGS: No significant additional findings. IMPRESSION: 1. No acute findings. Signer Name: Sobeida Diaz MD Signed: 04/03/2022 12:26 AM Workstation Name: [id number]
[2022-04-03 00:55] LABS: Color,Urine Colorless (Yellow)
[2022-04-03 01:20] VITALS: BP 158/68
--- NOTE | 2022-04-07 13:55 | Electrocardiograph Report ---
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
== END 2022-04-03 03:12 | disposition home or self-care (01) ==
LOC: ED 17:50
DX: R03.0 Elevated blood-pressure reading, without diagnosis of hypertension (principal); Z88.0 Allergy status to penicillin
CPT/HCPCS: 36415; 71045; 80053; 81001; 82550; 82553; 83615; 83735; 84484; 85027; 85610; 85730; 93005; 99283; 99284

== ENCOUNTER 2022-04-08 10:44 | Inpatient (IN) | payer OTHER ==
[2022-04-08] MEDS ORDERED: HYDROcodone/ACETAMINOPHEN 5-325 MG TAB PO PRN (10:55)
[2022-04-08] MEDS ORDERED: ACETAMINOPHEN 325 MG TAB PO PRN (10:55)
[2022-04-08] MEDS ORDERED: IBUPROFEN 800 MG TAB PO PRN (10:55)
[2022-04-08] MEDS ORDERED: MORPHINE 4 MG/1 ML INJ IV PRN (10:55)
--- NOTE | 2022-04-08 10:55 | History and Physical Report ---
History of Present Illness Date of examination: 04/08/22 Date of admission: 04/08/2022 Chief complaint: elevated blood pressures History of present illness: Vital Signs: Patient Profile: 31 Years Old Female Height: 62 inches BP sittin / 100 (left arm) Impression & Recommendations: Problem # 1: Elevated blood pressure (ICD-796.2) (DFX98-A73.0) Her updated medication list for this problem includes: Labetalol 200 Mg Tablet (Labetalol) ..... 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 Orders: Sick OB Visit Level III (CPT-84000) Visit Type: Acute Visit CC: POD #14 blood pressure check. Pt blood pressures elevated despite taking the labetalol 200 bid. States she had pre E with last and was on the procardia that worked well for her. She has been to the ED twice since d/c due to having sx and elevated bloodpressures at home. Pt was seen in ED onFriday 04/02/22 with blood pressures of 160s to 150s/80 and had normal labs and was d/c home. States she went due to feeling as if blood pressure was elevated. History of Present Illness: Pt presents for Blood pressure check. No c/o. ................................ .....................................Carmela Samra April 08, 2022 10:05 AM mask,Patient denies fever, cough, shortness of breath and exposure to COVID-19. EDC Confirmation: 03/31/2022 Gestational Age: 7 1/7 weeks Past History : 6 Term Births: 1 Premature Births: 2 # 1 Delivery date: 2014 Weeks Gestation: 36 Delivery type: Anesthesia type: epidural Delivery location: [place] Sex: Male weight: 6-2 Comments: 4th degree laceration Pre E induced # 2 Delivery date: 2016 Weeks Gestation: 35.0 Delivery type: Anesthesia type: epidural Delivery location: N.O. Infant Sex: Male weight: 5-13 Comments: pre term labor # 3 Delivery date: 2018 Delivery type: SAB # 4 Delivery date: 2019 Weeks Gestation: 37 Delivery type: Anesthesia type: epidural Delivery location: N.O. Sex: Female weight: 7-3 Comments: pre term labor at 31 weeks but delivered at 37 wks PP pre E was on oral meds Past Medical History: Negative Past Medical History Past Surgical History: positive Risk Factors: Smoked Tobacco Use: Never smoker Smokeless Tobacco Use: Never Passive Smoke Exposure: no HIV High Risk Behavior: no Exercise: yes Seatbelt Use: 100 % Alcohol Use: no Drug Use: no Past Medical History Abnormal PAP: negative JHOANA Exposure: negative Infertility: negative Uterine Anomaly: negative Uterine Surgery (not C/S): negative Other Gynecologic Problems: negative Medical History Comments: Gestationa HTN Gall bladder dz Social Hx: Marital Status: Children: 3 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 of genital herpes: no Varicella/Chicken Pox Status: Previous Disease Genetic History Congenital Heart Defect: Mom: no Dad: no Delmer Disease: Mom: no Dad: no Thalassemia Mom: no Dad: no Neural Tube Defect Mom: no Dad: no Down's Syndrome Mom: no Dad: no Alexsander-Sachs Mom: no Dad: no Sickle Cell Disease/Trait Mom: no Dad: no Hemophilia Mom: no Dad: no Muscular Dystrophy Mom: no Dad: no Cystic Fibrosis Mom: no Dad: no Traverse Chorea Mom: no Dad: no Mental Retardation Mom: no Dad: no Fragile X Mom: no Dad: no Other Genetic/Chromosomal Disorder Mom: no Dad: no Child w/other defect Mom: no Dad: no Enviromental Exposures Xray Exposure: no Medication, drug, or alcohol use since LMP: no Chemical/Other Exposure: no Exposure to Cat Liter: no Hx of Parvovirus (Fifth Disease): no Occupational Exposure to Children: none Active Medications: Diclegis 10-10 mg tablet,delayed release (DR/EC) (doxylamine-pyridoxine (vit b6)) 2 tablet by mouth once a day promethazine 12.5 mg tablet (promethazine) 1 tablet by mouth every six hours Current Allergies: * PENICILLIN (Critical) Past History - Obstetrical History : 6 Medications and Allergies Allergies Allergy/AdvReac Type Severity Reaction Status Date / Time Penicillins Allergy Hives Verified 03/17/22 12:35 Home Medications Medication Instructions Recorded Confirmed Last Taken Type Ferrous Sulfate [Feosol 325 MG tab] 325 mg PO BID #60 tablet 03/24/22 Unknown Rx Ibuprofen [Motrin] 800 mg PO TID PRN #30 tablet 03/24/22 Unknown Rx Lidocain2.5%/Prilocai2.5% [Emla] 5 gm TP ONCE #1 tube 03/24/22 Unknown Rx oxyCODONE /ACETAMINOPHEN [Percocet 1 tab PO Q6HR PRN #20 tablet 03/24/22 Unknown Rx 5/325 mg] Results All other labs normal.
[2022-04-08] MEDS ORDERED: MAGNESIUM SULFATE 40GM/1000ML 40 GM/1,000 ML BAG IV SCH (12:00)
[2022-04-08] MEDS ORDERED: MAGNESIUM SULFATE 4 GM/100 ML BAG IV ONE (13:47)
[2022-04-08] MEDS ORDERED: LACTATED RINGERS 1,000 ML ONE (13:47)
[2022-04-08] MEDS ORDERED: MAGNESIUM SULFATE 4 GM/100 ML BAG IV SCH (16:00)
[2022-04-08 19:38] LABS: Alanine Aminotransferase 16 units/L (7-56); Blood Urea Nitrogen 14 mg/dL (7-17); Calcium 9.4 mg/dL (8.4-10.2); Hemolysis Index 17
[2022-04-08 19:39] LABS: BUN/Creatinine Ratio 28
[2022-04-08 20:04] LABS: Basophils % (Auto) 0.5 % (0.0-1.8); Eosinophils # (Auto) 0.1 K/mm3 (0.0-0.4); Eosinophils % (Auto) 1.9 % (0.0-4.3); Hematocrit 34.7 % (30.3-42.9); Hemoglobin 10.9 gm/dl (10.1-14.3); Lymphocytes # (Auto) 2.2 K/mm3 (1.2-5.4); Mean Corpuscular HGB Conc 31 % (30-34); Mean Corpuscular Volume 85 fl (79-97); Monocytes # (Auto) 0.4 K/mm3 (0.0-0.8); Monocytes % (Auto) 5.9 % (0.0-7.3); Platelet Count 229 K/mm3 (140-440); Red Blood Count 4.07 M/mm3 (3.65-5.03); Red Cell Distribution Width 16.7 % (13.2-15.2)
[2022-04-09] MEDS ORDERED: LACTATED RINGERS 1,000 ML ONE (03:23)
[2022-04-09] MEDS ORDERED: MAGNESIUM SULFATE 40GM/1000ML 40 GM/1,000 ML BAG IV SCH (06:30)
[2022-04-09 06:46] LABS: Basophils % (Auto) 0.6 % (0.0-1.8); Eosinophils # (Auto) 0.1 K/mm3 (0.0-0.4); Eosinophils % (Auto) 1.9 % (0.0-4.3); Hematocrit 33.5 % (30.3-42.9); Hemoglobin 10.7 gm/dl (10.1-14.3); Lymphocytes # (Auto) 1.5 K/mm3 (1.2-5.4); Lymphocytes % (Auto) 29.3 % (13.4-35.0); Mean Corpuscular HGB Conc 32 % (30-34); Mean Corpuscular Volume 83 fl (79-97); Monocytes # (Auto) 0.4 K/mm3 (0.0-0.8); Monocytes % (Auto) 7.2 % (0.0-7.3); Platelet Count 197 K/mm3 (140-440); Red Blood Count 4.01 M/mm3 (3.65-5.03); Red Cell Distribution Width 16.7 % (13.2-15.2)
--- NOTE | 2022-04-09 08:34 | Progress Note ---
Assessment and Plan pt denies visual changes or epigastric pain, reports LUCAS while magnesium is infusing only. Mag was stopped and dose lowered to 1gm/hr d/t elevated mag levels. last mag level @ 0609 6.2. Urine output adequate. b/p mostly NL, no severe b/p's noted since admission b/p of 163/83 & 173/83. Continue Labetalol 200mg PO BID. Mag to be d/c'd after 24hrs. Explained to patient we would watch her b/p after cessation of mag before deciding when she can go home. - Patient Problems (1) Elevated blood pressure reading Current Visit: No Status: Acute Subjective - Subjective Date of service: 04/09/22 Principal diagnosis: day #15; htn readmit, mag 1gm/hr Patient reports: appetite normal, no nauseated Objective - Vital Signs Latest vital signs: Vital Signs Temp Pulse Resp BP BP Pulse Ox 04/09/22 08:31 70 98 04/09/22 08:26 78 99 04/09/22 08:21 82 98 04/09/22 08:16 63 98 04/09/22 08:11 67 98 04/09/22 08:06 75 151/77 98 04/09/22 08:01 73 97 04/09/22 07:56 70 98 04/09/22 07:51 74 98 04/09/22 07:46 69 98 04/09/22 07:41 78 98 04/09/22 07:36 61 138/77 98 04/09/22 07:31 64 98 04/09/22 07:26 61 98 04/09/22 07:21 60 98 04/09/22 07:16 69 98 04/09/22 07:11 58 L 99 04/09/22 07:06 60 134/79 99 04/09/22 07:01 72 99 04/09/22 06:56 70 99 04/09/22 06:51 68 99 04/09/22 06:46 70 99 04/09/22 06:41 73 100 04/09/22 06:37 97.6 F 04/09/22 06:36 75 127/79 100 04/09/22 06:31 73 100 04/09/22 06:26 73 100 04/09/22 06:21 73 98 04/09/22 06:16 70 100 04/09/22 06:11 74 100 04/09/22 06:07 75 126/62 04/09/22 06:06 77 99 04/09/22 06:01 71 99 04/09/22 05:56 61 99 04/09/22 05:51 61 99 04/09/22 05:46 58 L 99 04/09/22 05:41 67 99 04/09/22 05:36 60 119/67 99 04/09/22 05:31 65 99 04/09/22 05:26 62 99 04/09/22 05:21 68 98 04/09/22 05:16 76 99 04/09/22 05:11 66 98 04/09/22 05:06 68 125/75 99 04/09/22 05:01 77 98 04/09/22 04:56 75 97 04/09/22 04:51 75 98 04/09/22 04:46 75 98 04/09/22 04:41 62 98 04/09/22 04:36 63 121/69 98 04/09/22 04:31 64 98 04/09/22 04:26 62 98 04/09/22 04:21 60 99 04/09/22 04:16 63 97 04/09/22 04:11 63 98 04/09/22 04:06 69 131/70 98 04/09/22 04:01 75 98 04/09/22 03:56 62 98 04/09/22 03:51 61 99 04/09/22 03:46 63 98 04/09/22 03:41 61 98 04/09/22 03:36 70 115/70 99 04/09/22 03:31 61 98 04/09/22 03:26 75 99 04/09/22 03:21 62 98 04/09/22 03:16 66 98 04/09/22 03:11 71 99 04/09/22 03:07 68 114/57 04/09/22 03:06 72 99 04/09/22 03:01 73 100 04/09/22 02:56 70 99 04/09/22 02:51 64 99 04/09/22 02:46 70 99 04/09/22 02:41 70 100 04/09/22 02:36 71 118/57 99 04/09/22 02:31 87 100 04/09/22 02:26 89 98 04/09/22 02:21 59 L 98 04/09/22 02:16 61 98 04/09/22 02:11 61 98 04/09/22 02:06 58 L 115/66 98 04/09/22 02:01 60 98 04/09/22 01:56 63 99 04/09/22 01:51 61 98 04/09/22 01:46 62 98 04/09/22 01:41 75 99 04/09/22 01:36 69 135/75 99 04/09/22 01:31 77 98 04/09/22 01:26 73 98 04/09/22 01:21 63 99 04/09/22 01:16 57 L 98 04/09/22 01:11 56 L 98 04/09/22 01:06 59 L 121/63 98 04/09/22 01:01 66 99 04/09/22 00:56 61 98 04/09/22 00:51 59 L 99 04/09/22 00:46 59 L 99 04/09/22 00:41 60 98 04/09/22 00:36 59 L 125/70 98 04/09/22 00:31 60 98 04/09/22 00:26 61 97 04/09/22 00:21 80 99 04/09/22 00:16 61 98 04/09/22 00:11 66 97 04/09/22 00:06 76 119/72 99 04/09/22 00:01 61 98 04/08/22 23:56 78 98 04/08/22 23:51 62 98 04/08/22 23:46 62 98 04/08/22 23:41 65 98 22 23:36 62 105/61 98 2222 23:31 66 97 22 23:26 65 98 2222 23:21 65 98 22 23:16 64 98 22 23:11 66 98 2222 23:06 68 122/70 98 2222 23:01 80 99 22 22:56 75 99 22 22:51 73 99 2222 22:46 88 99 22 22:41 86 99 2222 22:37 83 118/66 22/22 22:36 82 99 04/08/22 22:31 88 99 04/08/22 22:26 97.9 F 94 H 22 100 04/08/22 22:21 78 98 04/08/22 22:16 81 98 04/08/22 22:11 64 98 04/08/22 22:06 65 121/73 98 04/08/22 22:02 63 123/74 04/08/22 22:01 63 97 04/08/22 21:56 64 97 04/08/22 21:51 62 98 04/08/22 21:47 61 126/74 04/08/22 21:46 66 97 04/08/22 21:41 101 H 99 04/08/22 21:36 68 97 04/08/22 21:32 71 127/73 04/08/22 21:31 59 L 98 04/08/22 21:26 67 97 04/08/22 21:21 64 97 04/08/22 21:17 64 119/68 04/08/22 21:16 65 98 04/08/22 21:11 64 97 04/08/22 21:06 67 97 04/08/22 21:02 63 140/70 04/08/22 21:01 67 98 04/08/22 20:56 60 97 04/08/22 20:51 76 99 04/08/22 20:47 64 120/60 04/08/22 20:46 66 98 04/08/22 20:41 78 98 04/08/22 20:36 67 98 04/08/22 20:32 76 122/68 04/08/22 20:31 81 99 04/08/22 20:26 92 H 98 04/08/22 20:21 71 99 04/08/22 20:17 77 129/73 04/08/22 20:16 76 98 04/08/22 20:11 82 98 04/08/22 20:06 72 99 04/08/22 20:02 68 120/69 04/08/22 20:01 71 99 04/08/22 19:56 82 99 04/08/22 19:51 72 98 04/08/22 19:47 73 129/71 04/08/22 19:46 73 99 04/08/22 19:41 79 99 04/08/22 19:36 68 99 04/08/22 19:32 65 134/69 04/08/22 19:31 64 99 04/08/22 19:26 70 99 04/08/22 19:21 71 99 04/08/22 19:17 67 138/65 04/08/22 19:16 74 99 04/08/22 19:11 74 99 04/08/22 19:06 75 99 04/08/22 19:03 97.9 F 14 04/08/22 19:02 68 121/72 04/08/22 19:01 74 99 04/08/22 18:56 66 99 04/08/22 18:51 74 99 04/08/22 18:47 63 122/74 04/08/22 18:46 74 99 04/08/22 18:41 72 99 04/08/22 18:36 72 99 04/08/22 18:32 70 131/78 04/08/22 18:31 77 98 04/08/22 18:26 68 99 04/08/22 18:21 61 99 04/08/22 18:17 67 128/81 04/08/22 18:16 66 99 04/08/22 18:11 64 99 04/08/22 18:06 63 99 04/08/22 18:02 67 140/65 04/08/22 18:01 62 99 04/08/22 17:56 68 99 04/08/22 17:51 88 99 04/08/22 17:47 84 156/61 04/08/22 17:46 60 99 04/08/22 17:41 60 99 04/08/22 17:36 67 99 04/08/22 17:32 72 133/63 04/08/22 17:31 74 100 04/08/22 17:26 72 99 04/08/22 17:21 66 99 04/08/22 17:17 59 L 132/64 04/08/22 17:16 68 98 04/08/22 17:11 79 100 04/08/22 17:06 63 98 04/08/22 17:02 60 135/67 04/08/22 17:01 62 99 04/08/22 16:56 63 99 04/08/22 16:51 64 100 04/08/22 16:47 60 128/60 04/08/22 16:46 60 99 04/08/22 16:41 62 99 04/08/22 16:36 62 99 04/08/22 16:32 58 L 140/76 04/08/22 16:31 73 98 04/08/22 16:26 67 99 04/08/22 16:21 59 L 99 04/08/22 16:17 60 135/73 04/08/22 16:16 60 100 04/08/22 16:11 61 100 04/08/22 16:06 66 99 04/08/22 16:02 67 120/58 04/08/22 16:01 76 99 04/08/22 15:56 60 99 04/08/22 15:51 60 99 04/08/22 15:47 61 133/65 04/08/22 15:46 63 99 04/08/22 15:41 64 99 04/08/22 15:36 56 L 99 04/08/22 15:32 64 141/66 04/08/22 15:31 67 99 04/08/22 15:26 63 98 04/08/22 15:21 79 98 04/08/22 15:17 61 139/75 04/08/22 15:16 72 99 04/08/22 15:11 68 99 04/08/22 15:06 65 99 04/08/22 15:02 55 L 149/74 04/08/22 15:01 54 L 99 04/08/22 14:56 55 L 99 04/08/22 14:51 54 L 99 04/08/22 14:47 60 163/78 04/08/22 14:46 52 L 99 04/08/22 14:41 65 99 04/08/22 14:36 55 L 99 04/08/22 14:32 53 L 171/83 04/08/22 14:31 58 L 99 04/08/22 14:26 63 100 04/08/22 14:21 59 L 99 04/08/22 14:16 112 H 88 04/08/22 14:11 58 L 99 04/08/22 14:06 68 99 04/08/22 14:05 60 163/83 04/08/22 14:04 97.4 F L 64 16 163/83 99 Intake and Output 04/08/22 04/09/22 04/09/22 23:59 07:59 15:59 Output Total 2600 1300 Balance -2600 -1300 Output: Urine 2600 1300 Indwelling Catheter 2600 1300 Other: Total, Output Amount 1400 400 - Exam Cardiovascular: Present: Regular rate Lungs: Present: Normal air movement Abdomen: Present: normal appearance, soft Extremities: Present: normal Deep Tendon Reflex Grade: Normal +2 Incision: Present: normal - Labs Labs: Abnormal lab results 04/08/22 04/08/22 04/08/22 Range/Units 17:00 18:52 19:12 MCH 27 L (28-32) pg RDW 16.7 H (13.2-15.2) % Carbon Dioxide 19 L (22-30) mmol/L Creatinine 0.5 L (0.6-1.2) mg/dL Magnesium 5.10 H (1.7-2.3) mg/dL 04/09/22 04/09/22 04/09/22 Range/Units 01:52 06:09 06:09 MCH 27 L (28-32) pg RDW 16.7 H (13.2-15.2) % Carbon Dioxide (22-30) mmol/L Creatinine (0.6-1.2) mg/dL Magnesium 7.40 H 6.20 H (1.7-2.3) mg/dL
--- NOTE | 2022-04-10 10:38 | Discharge Summary ---
Providers - Providers Date of Admission: 04/08/22 12:38 Date of discharge: 04/10/22 (desires d/c home) Attending physician: FAHAD GONZALEZ Primary care physician: WALLY MIRANDA Hospitalization Reason for admission: b/p managament Condition: Good Disposition: 01 HOME / SELF CARE / HOMELESS Final Discharge Diagnosis (Prints w/discharge instructions): elevated bloodpressue, 2 weeks Time spent for discharge: 20 - Discharge Diagnoses (1) Elevated blood pressure reading Status: Acute Core Measure Documentation - Palliative Care Palliative Care/ Comfort Measures: Not Applicable - Core Measures Any of the following diagnoses?: none Exam - Physical Exam Narrative exam: denies LUCAS, visual changes, epigastric pain, chest pain - Constitutional Vitals: Temp Pulse Resp BP Pulse Ox 98.2 F 75 18 137/75 99 04/10/22 07:14 04/10/22 07:14 04/10/22 07:14 04/10/22 07:14 04/10/22 07:14 General appearance: Present: no acute distress, well-nourished - EENT Eyes: Present: PERRL ENT: hearing intact, clear oral mucosa - Neck Neck: Present: supple, normal ROM - Respiratory Respiratory effort: normal Respiratory: bilateral: CTA - Cardiovascular Heart Sounds: Present: S1 & S2. Absent: rub, click - Extremities Extremities: pulses symmetrical, No edema Peripheral Pulses: within normal limits - Abdominal General gastrointestinal: Present: soft, non-tender, non-distended, normal bowel sounds Female genitourinary: Present: normal - Integumentary Integumentary: Present: clear, warm, dry - Musculoskeletal Musculoskeletal: gait normal, strength equal bilaterally - Psychiatric Psychiatric: appropriate mood/affect, intact judgment & insight - Neurologic Neurologic: CNII-XII intact, moves all extremities Plan Activity: advance as tolerated Diet: regular Follow up with: CARLI MCCAULEY MD [Staff Physician] - 7 Days
[2022-04-10 11:10] VITALS: BP 136/82
[2022-04-10] MEDS ORDERED: TETANUS,DIPH,PERTUSS(ACELL) VACCINE 0.5 ML SYRINGE IM ONE (12:20)
== END 2022-04-10 11:38 | disposition home or self-care (01) | DRG 776 ==
LOC: UNDOADMIN 10:44 → 3A 10:44 → LD 12:38 → OB 04-09 15:13
PROVIDERS: ADMIT Obstetrics & Gynecology; ATTEND Obstetrics & Gynecology
PROC: 3E0234Z Introduction of Serum, Toxoid and Vaccine into Muscle, Percutaneous Approach (ICD-10-PCS; principal; 2022-04-10)
DX: O16.5 Unspecified maternal hypertension, complicating the puerperium (principal); Z23 Encounter for immunization; Z88.0 Allergy status to penicillin
CPT/HCPCS: 36415; 80053; 83735; 85025; 90715; G0378; J3475; J7120